=== PATIENT | female | born 1985 | race Caucasian/White ===

== ENCOUNTER 2017-09-07 15:39 | Inpatient (IN) | payer OTHER ==
[2017-09-07 16:55] LABS: Hematocrit 32 % (35-47); Hemoglobin 11.3 g/dl (12.0-16.0); Mean Corpuscular HGB Conc 35 g/dl (31-36); Mean Corpuscular Hemoglobin 31 pg (27-31); Mean Corpuscular Volume 87 fL (80-97); Mean Platelet Volume 9 um3 (7.4-10.4); Platelet Count 230 10^3/ul (150-450); Red Cell Distribution Width 16 % (10.5-15)
[2017-09-08] MEDS ORDERED: Nalbuphine* 20 MG/ML 1 ML VIAL IV PRN (00:15)
[2017-09-08] MEDS ORDERED: Promethazine INJ(RESTRICTED)* 25 MG/ML 1 ML VIAL IV ONE (00:20)
[2017-09-08] MEDS ORDERED: Nalbuphine* 20 MG/ML 1 ML VIAL ONE (00:22)
[2017-09-08] MEDS ORDERED: Promethazine INJ(RESTRICTED)* 25 MG/ML 1 ML VIAL ONE (00:22)
[2017-09-08] MEDS ORDERED: Ibuprofen TAB* 600 MG ONE (02:19)
[2017-09-08] MEDS ORDERED: Witch Hazel PAD* JAR TOPICAL PRN (02:33)
[2017-09-08] MEDS ORDERED: Dibucaine 1% 28.35 GM TUBE PR PRN (02:33)
[2017-09-08] MEDS ORDERED: Glycerin ADULT SUPP PR PRN (02:33)
[2017-09-08] MEDS: Acetaminophen TAB* 325 MG PO PRN ×2 (03:04→16:02)
[2017-09-08] MEDS: Ibuprofen TAB* 600 MG PO PRN ×2 (08:45→20:38)
[2017-09-08] MEDS: Simethicone TAB* 80 MG TAB.CHEW PO SCH ×2 (08:46→12:45)
[2017-09-08] MEDS: Docusate CAP* 100 MG PO SCH ×3 (08:48→20:38)
[2017-09-09 06:47] LABS: ABS Basophils 0.1 10^3/ul (0-0.2); ABS Eosinophils 0.3 10^3/ul (0-0.6); ABS Lymphocytes 2.8 10^3/ul (1.0-4.8); ABS Monocytes 0.9 10^3/ul (0-0.8); ABS Neutrophils 11.3 10^3/ul (1.5-7.7); ABS Nucleated RBC 0 10^3/ul; Eosinophil % 1.7 % (0-6); Hematocrit 31 % (35-47); Hemoglobin 10.7 g/dl (12.0-16.0); Lymphocyte % 18.2 % (25-47); Mean Corpuscular HGB Conc 35 g/dl (31-36); Mean Corpuscular Hemoglobin 31 pg (27-31); Mean Corpuscular Volume 87 fL (80-97); Mean Platelet Volume 9 um3 (7.4-10.4); Nucleated Red Blood Cells % 0; Platelet Count 222 10^3/ul (150-450); Red Blood Count 3.51 10^6/ul (4.0-5.4); Red Cell Distribution Width 16 % (10.5-15); White Blood Count 15.4 10^3/ul (3.5-10.8)
[2017-09-09 08:01] VITALS: BP 106/71
[2017-09-09] MEDS ORDERED: Ferrous Gluconate TAB* 324 MG TAB PO SCH (09:00)
[2017-09-09] MEDS: Docusate CAP* 100 MG PO SCH (09:10)
[2017-09-09] MEDS: Acetaminophen TAB* 325 MG PO PRN (09:10)
[2017-09-09] MEDS ORDERED: Omeprazole CAP* 20 MG PO ONE (11:15)
== END 2017-09-09 12:33 | disposition home or self-care (01) | DRG 560 ==
LOC: MCHOBOUT 15:39 → MCHOB 16:10
PROVIDERS: ADMIT Obstetrics & Gynecology; ATTEND Obstetrics & Gynecology
PROC: 10E0XZZ Delivery of Products of Conception, External Approach (ICD-10-PCS; principal; 2017-09-08)
DX: O60.23X1 Term delivery with preterm labor, third trimester, fetus 1 (principal); O34.219 Maternal care for unspecified type scar from previous cesarean delivery; Z3A.37 37 weeks gestation of pregnancy; Z37.0 Single live birth
CPT/HCPCS: 36415; 76815; 85025; 85027; 86592; 86850; 86900; 86901; A9270-GY; J2300; J2550

== ENCOUNTER 2019-01-16 14:48 | Day surgery (SDC) | payer BC, OTHER ==
[~2019-01-16 14:48] MED LIST: Buffered Lidocaine 1% SYRIN* 1 ML/SYRINGE INTRADERM ONE; Famotidine IV* 10 MG/ML 2 ML (20 mg) IV ONE; Famotidine IV* 10 MG/ML 2 ML (20 mg) ONE; Lactated Ringers 1000 ML Bag* 1,000 ML IV SCH
[2019-01-16] MEDS ORDERED: Lidocaine 2% PF * 5 ML VIAL ONE (14:54)
[2019-01-16] MEDS ORDERED: Propofol* 10 MG/ML 20 ML BTL ONE (14:54)
[2019-01-16] MEDS ORDERED: Dexamethasone IV* 4 MG/ML 1 ML (4 MG) ONE (14:54)
[2019-01-16] MEDS ORDERED: Ondansetron INJ* 2 MG/ML VIAL ONE ×2 (14:54→18:39)
[2019-01-16] MEDS ORDERED: EPINEPHRINE 1 MG/ML 1 ML VIAL ONE (14:55)
[2019-01-16] MEDS ORDERED: Ofloxacin 0.3% (Ear Drop)* 5 ml BTL ONE (14:55)
[2019-01-16] MEDS ORDERED: Midazolam* 1 MG/ML 5 ML VIAL (5 MG) ONE (14:55)
[2019-01-16] MEDS ORDERED: fentaNYL* 50 MCG/ML 2 ML VIAL (100 MCG VIAL) ONE (14:55)
[2019-01-16] MEDS ORDERED: Lidocaine 2% w/ EPI 1:200,000* 20 ML VIAL ONE (14:56)
[2019-01-16] MEDS ORDERED: Gelfoam Sponge SIZE 100* SPONGE ONE (14:56)
[2019-01-16] MEDS ORDERED: Bacitracin OINTMENT* 0.5% 0.5 oz TUBE ONE (14:56)
[2019-01-16] MEDS ORDERED: oxyCODONE/Acetamin 5/325 MG* TAB PO PRN (15:58)
[2019-01-16] MEDS ORDERED: Ondansetron INJ* 2 MG/ML VIAL IV PRN (15:58)
[2019-01-16] MEDS ORDERED: Naloxone* 0.4 MG/ML 1 ML VIAL IV PRN (15:58)
[2019-01-16] MEDS ORDERED: fentaNYL* 50 MCG/ML 2 ML VIAL (100 MCG VIAL) IV PRN (15:58)
[2019-01-16] MEDS ORDERED: oxyCODONE/Acetamin 5/325 MG* TAB ONE (18:10)
[2019-01-16 19:51] VITALS: BP 110/73
--- NOTE | 2019-01-16 21:38 | OP ---
DATE OF OPERATION: 01/16/19 - [facility] DATE OF : 83 SURGEON: Levar Cook MD PRE-OP DIAGNOSIS: Right ear perforation with conductive hearing loss. POST-OP DIAGNOSIS: Right ear perforation with conductive hearing loss. OPERATIVE PROCEDURE: Tympanoplasty with temporalis fascia graft. 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 DESCRIPTION OF PROCEDURE: The patient was taken to the operating room. The patient was intubated with an LMA. Right ear was then prepped and draped in the usual fashion. The ear was examined under microscope. A little cholesteatoma along the malleus was removed. Carefully removing all of the epithelial debris along the malleus. Margins of the perforation were then freshened up. I then harvested the temporalis graft, this wound was closed in a single layer using 5-0 chromic. The underlay technique was done. From approximately 12 o' clock to 7 o'clock, tympanomeatal flap was elevated. The incudostapedial joint was examined. Palpation of the malleus created adequate mobilization of the stapes. The underlay along the annulus and then packing the middle ear with Gelfoam, the graft was placed. Once secured, the vascular strip was placed back down. Laterally, the ear was packed with Gelfoam, which was soaked with ofloxacin. The patient was then awakened, extubated, and sent to recovery room in stable condition. Instrument and sponge counts correct. Blood loss minimal. [id number] #: [id number] [facility]
== END 2019-01-16 19:43 | disposition home or self-care (01) ==
LOC: OR 14:48
PROVIDERS: ATTEND Otolaryngology
DX: H72.01 Central perforation of tympanic membrane, right ear (principal); H90.11 Conductive hearing loss, unilateral, right ear, with unrestricted hearing on the contralateral side; H71.91 Unspecified cholesteatoma, right ear; K21.9 Gastro-esophageal reflux disease without esophagitis
CPT/HCPCS: 81025; 88304; A9270-GY; J1100; J2250; J2405; J2704; J3010